=== PATIENT | female | born 1960 | race Caucasian/White ===

== ENCOUNTER → 2022-03-30 08:27 | Outpatient (BNVA) | payer OTHER, SELFPAY | PROVIDERS: PCP Internal Medicine; Visit Provider Internal Medicine | DX: M23.91 Unspecified internal derangement of right knee (principal); S76.011A Strain of muscle, fascia and tendon of right hip, initial encounter; S39.012A Strain of muscle, fascia and tendon of lower back, initial encounter; X50.1XXA Overexertion from prolonged static or awkward postures, initial encounter | CPT/HCPCS: 72100; 73502; 73564; 99203 ==

== ENCOUNTER → 2022-04-13 11:22 | Outpatient (BNVA) | payer OTHER, SELFPAY | PROVIDERS: PCP Internal Medicine; Visit Provider Physician Assistant Medical | DX: M23.91 Unspecified internal derangement of right knee (principal); S76.011D Strain of muscle, fascia and tendon of right hip, subsequent encounter; S39.012D Strain of muscle, fascia and tendon of lower back, subsequent encounter; S76.311D Strain of muscle, fascia and tendon of the posterior muscle group at thigh level, right thigh, subsequent encounter; X50.1XXD Overexertion from prolonged static or awkward postures, subsequent encounter | CPT/HCPCS: 99213 ==

== ENCOUNTER 2023-08-21 10:10 | Outpatient (AMB) | payer OTHER, SELFPAY ==
--- NOTE | 2023-08-21 10:18 | A.OFFVIS_ITS ---
Vital Signs 08/21/23 10:19 Height 5 ft 3 in Weight 261 lb 3.964 oz BMI 46.3 BP 132/74 Blood Pressure Location Rt brachial Position Sitting Pulse 87 Pulse Source Pulse Oximeter Temp 97 F Temp Source Skin Intake Visit Reasons: elv esr/arthralgia/CM Intake Note: New patient, externally referred by PCP at [place], presents to office today for elevated ESR and arthralgia. Joints affected: multiple joints, bl hand tingling and numbing, worse on left. Pain began approx: many years ago Has tried: cortisone injections with [facility], she is waiting to be scheduled for gel injections Mill Manager Required: No Accompanied by: Self / Same As Patient Allergies codeine Allergy (Verified 08/21/23 10:22) Gastrointestinal Upset meperidine [From Demerol] Allergy (Verified 08/21/23 10:22) Rash Sulfa (Sulfonamide Antibiotics) Allergy (Verified 08/21/23 10:22) Unknown HPI Comments Details: Ms. Ellison 63 yoF presents for evaluation of arthralgias and elevated sed rate; on referal from PCP. She has had pain for years and has had multiple modes of treatment. She currently takes Tramadol for times of worse back pain. 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 last gel shots 6 months ago in 02/2023. Knee feels well with HLA shots; once in a while cortisone which lasts about 1 1/2 years - last one about 10 days ago. --SI joint -see PSS - 01/2023 - cortisone injection; did PT 6 months stopped in June 2023. --Shoulders injections --morning stiffness about 20 - 30 mins; stiffness after inactivity takes about 15 minutes; has to slowly get up to steady herself before she starts to walk --used to golf, go to the pool and play around and bowl - pain gradual stopped her from these things --hand feels pins and needles, seen Rheum at [place] [place] years ago - suggested CTS; --vitamin D difficiency - OTC meds --no known family history of CTD or inflammatory - regular arthritis for mom and dad. --takes tramadol as needed for lower back. --denies psoriasis uveitis, GI and symptoms, PFSH Medical History (Updated 08/22/23 @ 19:43 by Angelica Licona, [facility]) Chronic radicular pain of lower back Pain in joint involving multiple sites Depression Allergic rhinitis Anxiety Osteoarthritis of cervical spine JAVY (obstructive sleep apnea) Asthma Vitamin D deficiency, unspecified Hepatic steatosis Polyp of colon GERD (gastroesophageal reflux disease) Cigarette smoker DJD (degenerative joint disease) Pure hyperglyceridemia Prediabetes History of COVID-19 CARL (stress urinary incontinence, female) Tremor Family History Mother Diabetes Social History Alcohol intake: current Alcohol intake frequency: holidays/special occasions o nly Patient Tobacco Use Status: Former Tobacco user Current occupational status: employed Current occupation: Accounts payable Review of Systems Const All systems reviewed & are unremarkable except as noted in HPI and below Physical Exam Vital Signs: Last Vital Signs Temp 97 F 08/21/23 10:19 Pulse 87 08/21/23 10:19 BP 132/74 08/21/23 10:19 BMI result Body Mass Index 46.3 APPEARANCE: Patient in no acute distress EYES no redness, normal EARS:? External ear normal. NOSE/SINUS:? Airflow through both nares, no nasal discharge, no bleeding THROAT:? Oral mucosa moist, no ulcerations NECK:? No thyromegaly or masses, no adenopathy, trachea midline. HEART:? Regular rhythm, S1-S2 heard, no murmurs, rubs or gallops. LUNG:? Clear to percussion and auscultation EXTREMITIES:? No edema, no calf tenderness, normal peripheral pulses. NEURO:? Oriented and alert x3.? No focal weakness.? Reflexes symmetric.? Gait normal. SKIN:? There are no skin lesions evident. No objective signs of Raynaud's phenomenon. JOINT EXAM: Cervical Spine:.? Full range of motion without pain; no tenderness. Thoracic Spine:.? No scoliosis.? No tenderness on palpation. Lumbar Spine:.? Alignment normal.? Full range of motion without pain, no tenderness. Chest Wall:.? No tenderness, swelling, increased warmth or erythema. Hands:.? Normal pain-free range of motion without tenderness, swelling, increased warmth or erythema. Able to make a full fist and has a good forest practices field coordinator strength. Wrists:.? Normal pain-free range of motion without tenderness, swelling, increased warmth or erythema. Elbows:. Normal pain-free range of motion without tenderness, swelling, increased warmth or erythema. Shoulders:.?? Full range of motion without pain. No tenderness, weakness, swe lling, increased warmth or erythema. Hips:.? Full range of motion without pain. Hip bursa:.? No tenderness. Knees:.?? Normal pain-free range of motion without tenderness, swelling, increased warmth or erythema.? There is no effusion or crepitation Ankles:.? Normal pain-free range of motion without tenderness, swelling, increased warmth or erythema. Feet:.? Normal pain-free range of motion without tenderness, swelling, increased warmth or erythema. Tender points:? No tenderness to digital palpation at the occiput, trapezius, second rib, lateral epicondyle, knees, greater trochanter and gluteal area bilaterally. ? Assessment & Plan Assessment & Plan (1) Pain in joint involving multiple sites: Code(s): M25.50 - Pain in unspecified joint Category: Medical (2) Chronic radicular pain of lower back: Code(s): M54.16 - Radiculopathy, lumbar region; G89.29 - Other chronic pain Category: Medical Plan #Lower Back and Multiple Joint Pain: Patient here on referral for evaluation of joint pain in the context of elevated sed rate (lab value not in referral, will obtain). She has seen Rheum in the past with no adverse findings outside of OA. I do not think this visit will have a different result. On PE, she does have osteoarthritis in multiple joints and I think that may be the reason for some of her joint pain. I also think she is deconditioned and has increased weight that markedly reduces her flexability and her muscles are tight\, especially to the upper back/shoulders. She currently sees NEOs and PSS and appears is being treated effectively given a cortisone shot can have lasting effects for 1-1/2 years and gel shots to her knees give her at least 3 month of respite. However given the elevated sed rate and joint pain. I will obtain Rheum labs for further analysis. Some Rheum labs were listed as ordered in the referral so I will reach out for the results. It is important to note that being obese (BMI 46) can also cause an increased sed rate. She was referred to nutrition counseling to start her weight loss program. Patient was also referred to Neurology for CTS and physical therapy. Referral labs ordered 05/29/2023 CMP, sed ate, FATUMA, uric acid, CBC, rheumatoid factor, Lyme Shoulder x-ray I spent 40 minutes reviewing history, evaluating patient and documenting Follow-up as needed if lab findings significant Orders: Orders Complete Blood Count Auto Diff 08/21/23 M25.50 - Pain in unspecified joint Immunoglobulins,IgG IgA IgM 08/21/23 M25.50 - Pain in unspecified joint Protein Electrophoresis, Serum 08/21/23 M25.50 - Pain in unspecified joint Erythrocyte Sedimentation Rate 08/21/23 M25.50 - Pain in unspecified joint Comprehensive Met. Panel 08/21/23 M25.50 - Pain in unspecified joint C Reactive Protein 08/21/23 M25.50 - Pain in unspecified joint Creatine Kinase Total 08/21/23 M25.50 - Pain in unspecified joint Immunofixation Pnl, Serum 08/21/23 M25.50 - Pain in unspecified joint Coding Level of Care Code New Pt Level 4 (95051) Diagnoses Pain in joint involving multiple sites M25.50 Chronic radicular pain of lower back M54.16; G89.29
[2023-08-21 10:19] VITALS: BP 132/74; PULSE 87; TEMP 36.1; BMI 46.3
== END 2023-08-21 11:28 | disposition home or self-care (01) ==
PROVIDERS: PCP Internal Medicine; Visit Provider Nurse Practitioner Family
DX: M25.50 Pain in unspecified joint (principal); M54.16 Radiculopathy, lumbar region; G89.29 Other chronic pain
CPT/HCPCS: 99204

== ENCOUNTER → 2023-08-21 10:10 | Outpatient (BNVA) | payer OTHER, SELFPAY | PROVIDERS: PCP Internal Medicine; Visit Provider Nurse Practitioner Family ==